=== PATIENT | female | born 1950 | race American Indian/Alaskan Native ===

== ENCOUNTER 2016-05-16 07:24 | Emergency (ER) | payer MEDICARE ==
--- NOTE | 2016-05-16 08:43 | Emergency Department Report ---
HPI - General Chief Complaint: Allergic Reaction Time Seen by Provider: 05/16/16 08:02 - HPI HPI: Patient is a 65-year-old female who presents to ED complaining of upper lip swelling and itching 3 days. Patient states about 3 days ago she started experiencing her upper lips swell and began itching. Patient states no allergies to any medication or food tension. Patient did mention she has been on Augmentin pills for upper respiratory infection given to her by primary care doctor on 05/05/2016. Patient states she only has one more pill intake and has been doing fine pill. Patient admits taking metoprolol and hydrochlorothiazide for blood pressure medication has been taken that for years. Patient states she took 50 mg of Benadryl about an hour ago to help with the itching. Patient states she has some mild headache that started this morning. Patient denies fevers/chills/nausea/vomiting/abdominal pain/diarrhea/shortness of breath/chest pain. ED Past Medical Hx - Past Medical History Hx Hypertension: Yes Additional medical history: Hypothyroid, Mitral Valve Prolapse, Hiatal Hernia - Surgical History Additional Surgical History: Back Surgery - Social History Smoking Status: Never Smoker Substance Use Type: None - Medications Home Medications: Home Medications Medication Instructions Recorded Confirmed Last Taken Type Diphenhydramine HCl [Benadryl 25 mg PO DAILY #30 tablet 05/16/16 Unknown Rx Allergy TAB] EPINEPHrine [Epipen 2-Luc] 0.3 mg IM PRN PRN #1 pack 05/16/16 Unknown Rx Prednisone [predniSONE 10 mg 10 mg PO .TAPER #1 tab.ds.pk 05/16/16 Unknown Rx (6-Day Pack, 21 Tabs)] ED Review of Systems ROS: Stated complaint: ALLERGIC REACTION Other details as noted in HPI Constitutional: denies: chills, fever Eyes: denies: eye pain, eye discharge, vision change ENT: denies: ear pain, throat pain Respiratory: denies: cough, shortness of breath, wheezing Cardiovascular: denies: chest pain, palpitations Endocrine: no symptoms reported Gastrointestinal: denies: abdominal pain, nausea, diarrhea Genitourinary: denies: urgency, dysuria, frequency, hematuria, discharge, abnormal menses Musculoskeletal: denies: back pain, joint swelling, arthralgia Skin: denies: rash, lesions Neurological: denies: headache, weakness, numbness, paresthesias, abnormal gait , vertigo Psychiatric: denies: anxiety, depression Hematological/Lymphatic: denies: easy bleeding, easy bruising Physical Exam - Physical Exam Vital Signs: Vital Signs 05/16/16 07:30 Temperature 97.9 F Pulse Rate 65 Respiratory 20 Rate Blood Pressure 133/92 O2 Sat by Pulse 98 Oximetry Physical Exam: GENERAL: Alert and oriented x3, no apparent distress, Normal Gait, atraumatic. HEAD: Head is normocephalic and a-traumatic. EYES: Extra ocular muscles are intact. Pupils are equal, round, and reactive to light and accommodation. EARS: symetrical, atraumatic, non tender, ear canal clear and moderate cerumen, tympanic membrance non inflamed. gross auditory nml bilaterally. NOSE: Nose symetrical, Nontender,Nares appeared normal. MOUTH:Mouth is well hydrated and without lesions. Tonsils nonerythematous or swollen, Uvula midline, Tongue slightly elevated. Mucous membranes are moist. Posterior pharynx clear, no exudate or lesions. Patent airways. Upper lip edema moderate edema NECK: Supple. Non edematous, No carotid bruits. No lymphadenopathy or thyromegaly. LUNGS: Symetrical with respiration, No wheezing, no rales or crackles, CTAB. HEART: S1, S2 present, regular rate and rhythm without murmur, no rubs, no gallops. ABDOMEN: No organomegaly was noted,Positive bowel sounds, soft, and non- distended. . Nontender to palpation on all Quadrants, NO CVA tenderness. EXTREMITIES/MUSCULOSKELETAL: No cyanosis, clubbing, rash, lesions or edema. Full ROM bilaterally. UE/LE Pulses 2+ bilaterally. LE and UE 5+ strength bilaterally NEUROLOGIC: No focal Deficit, Cranial nerves II through XII are grossly intact. No loss of sensation, PSYCHIATRIC: Mood is congruent with affect, denies suicidal or homicidal ideations. SKIN: Warm and dry, No lesions, No ulceration or induration present. ED Course Vital Signs 05/16/16 07:30 Temperature 97.9 F Pulse Rate 65 Respiratory 20 Rate Blood Pressure 133/92 O2 Sat by Pulse 98 Oximetry ED Medical Decision Making - Medical Decision Making 65-year-old female presents with allergic reaction to unknown substance. ED course patient to 50 mg of Benadryl an hour prior to ED. Patient received 125 mg of SoluMedrol IM. Patient received 60 mg IM of Toradol for headache. Vital signs are stable patient is in no acute or respiratory distress. No signs of airway compromise. Discussed with patient if symptoms got worse to return to ED. Discussed patient will follow-up with the primary care physician. Discussed the patient home medication of EpiPen and prednisone pack and continue to take Benadryl. Discussed with patient how to use an EpiPen and when needed She states she understands and will comply to follow instructions given as well as follow-up with her primary care. Critical care attestation.: If time is entered above; I have spent that time in minutes in the direct care of this critically ill patient, excluding procedure time. ED Disposition Clinical Impression: Allergic angioedema Qualifiers: Encounter type: initial encounter Qualified Code(s): T78.3XXA - Angioneurotic edema, initial encounter Disposition: DISCHARGED TO HOME OR SELFCARE Is pt being admited?: No Does the pt Need Aspirin: No Condition: Stable Instructions: Angioedema (ED), Anaphylaxis (ED) Prescriptions: Diphenhydramine HCl [Benadryl Allergy TAB] 25 mg PO DAILY #30 tablet EPINEPHrine [Epipen 2-Luc] 0.3 mg IM PRN PRN #1 pack PRN Reason: Anaphylaxis Prednisone [predniSONE 10 mg (6-Day Pack, 21 Tabs)] 10 mg PO .TAPER #1 tab.ds.pk Forms: Work/School Release Form(ED) Time of Disposition: 09:19
[2016-05-16 09:06] VITALS: BP 152/93
[2016-05-16] MEDS ORDERED: TORADOL IM ONE (09:06)
== END 2016-05-16 09:37 | disposition home or self-care (01) ==
LOC: ED 07:24
DX: T78.3XXA Angioneurotic edema, initial encounter (principal); I10 Essential (primary) hypertension; E03.9 Hypothyroidism, unspecified; I34.1 Nonrheumatic mitral (valve) prolapse
CPT/HCPCS: 82962; 96372; 99282; J1885; J2930